=== PATIENT | female | born 1935 | race Caucasian/White ===

== ENCOUNTER 2019-04-11 08:57 | Day surgery (SDC) | payer OTHER, BC ==
[2019-04-10 12:22] VITALS: BMI 26.2
[2019-04-11] MEDS ORDERED: DEXAMETHASONE SOD PHOSPHATE 4 MG/1 ML VIAL ONE (10:46)
[2019-04-11] MEDS ORDERED: PROPOFOL 20 ML ONE (10:46)
[2019-04-11] MEDS ORDERED: ONDANSETRON 4 MG/2 ML VIAL IVPUSH PRN (12:39)
[2019-04-11] MEDS ORDERED: LACTATED RINGERS SOLUTION 1,000 ML IV SCH (12:45)
[2019-04-11] MEDS ORDERED: GENTAMICIN 80MG PREMIX BAG IVPB ONE (13:05)
[2019-04-11] MEDS ORDERED: PHENYLEPHRINE HCL 10 MG/1 ML SINGLE DOSE VIAL ONE (13:15)
[2019-04-11] MEDS ORDERED: SODIUM CHLORIDE 0.9% P/F 10 ML VIAL IJ ONE (13:27)
--- NOTE | 2019-04-11 14:42 | OP ---
DATE OF OPERATION: 04/11/2019 PREOPERATIVE DIAGNOSIS: Bladder tumor. POSTOPERATIVE DIAGNOSIS: Bladder tumor and tumor involving the left ureteral orifice. ATTENDING SURGEON: Ernst Armando MD ANESTHESIA: General by LMA. PROCEDURE: Transurethral resection of bladder tumor and insertion of a left ureteral stent. DESCRIPTION OF PROCEDURE: Patient brought into the operating room after a time-out was performed. IV gentamicin was administered. She was carefully placed in lithotomy and prepped and draped in the usual sterile fashion. The rigid cystoscope was passed and cold punch biopsies obtained from the large papillary lesion in the region of the trigone. Numerous other small lesions were noted and the in the left ureteral orifice noted. A ureteral guidewire was then passed into the left ureteral orifice and advanced up into the kidney and a 6-Danish 24-cm double pigtail catheter was then passed over the wire. Following this, the cystoscope was removed, the resectoscope was inserted, one of the remaining tumors was removed, and the bases were fulgurated. The tumor within the left orifice was fulgurated as well. There were no residual bleeding and no further tumors noted. The patient tolerated the procedure well. There was no significant blood loss during the procedure. MD ADÁN RODRIGEUZ/[id number]
[2019-04-11 16:33] VITALS: BP 151/73; PULSE 92; TEMP 97.7
--- NOTE | 2019-04-13 16:56 | PATH ---
Surgical Pathology Report Patient Name: TREASURE GOLDMAN [facility]. Rec. #: [id number] /Age/Gender: 1935 (Age: 83) / F Account: [id number] Location: [facility] SURGICAL Taken: 04/11/2019 Received: 04/12/2019 Reported: 04/13/2019 Physicians: Ernst Armando MD Specimen(s) Received BLADDER TUMOR Clinical History Malignant neoplasm of lateral wall bladder Final Diagnosis BLADDER TUMOR, TRANSURETHRAL RESECTION OF BLADDER TUMOR: HIGH GRADE PAPILLARY UROTHELIAL CARCINOMA, NON-INVASIVE. NO MUSCULARIS PROPRIA IDENTIFIED. NO FLAT CARCINOMA IN SITU (CIS) IDENTIFIED. Comment: Findings discussed with Dr. Armando. Electronically Signed Susan Langley M.D. Gross Description Received in formalin labeled "bladder tumor," is a 0.6 cm in greatest dimension, [place] soft tissue fragment. The specimen is submitted in toto in one cassette. 04/12/2019 saudi04/12/2019
== END 2019-04-11 16:15 | disposition home or self-care (01) ==
LOC: JASU-SURG 08:57
PROVIDERS: ATTEND Urology
PROC: 0T5B8ZZ Destruction of Bladder, Via Natural or Artificial Opening Endoscopic (ICD-10-PCS; principal; 2019-04-11 11:00)
PROC: 0T9780Z Drainage of Left Ureter with Drainage Device, Via Natural or Artificial Opening Endoscopic (ICD-10-PCS; 2019-04-11 11:00)
DX: C67.2 Malignant neoplasm of lateral wall of bladder (principal); I10 Essential (primary) hypertension; E11.9 Type 2 diabetes mellitus without complications; Z79.84 Long term (current) use of oral hypoglycemic drugs
CPT/HCPCS: 82962; 88305-TC; 94760